=== PATIENT | female | born 1975 | race Caucasian/White ===

== ENCOUNTER 2019-03-20 10:49 | Inpatient (IN) | payer MEDICAID, OTHER ==
[~2019-03-20] VITALS: Ht 162.6 cm; Wt 58.1 kg
[2019-03-20] MEDS ORDERED: VISCOUS LIDOCAINE 2% 15 ML UDC MM ONE (12:00)
[2019-03-20] MEDS ORDERED: KETOROLAC 60MG/2ML VIAL IM ONE (12:00)
[2019-03-20 12:13] LABS: HEMATOCRIT. 30.9 % (36.0-48.0); MEAN CORPUSCULAR HEMOGLOBIN 20.5 pg (28.0-32.0); MEAN CORPUSCULAR VOLUME 70.3 fL (81.0-99.0); MEAN PLATELET VOLUME 10.9 fl (7.4-10.4); PLATELET 341 x1000/uL (130-400); RED CELL DISTRIBUTION WIDTH 19.1 % (11.6-14.6)
[2019-03-20 12:47] LABS: PLATELET ESTIMATE NORMAL
[2019-03-20] MEDS: HYDROCORTISONE ACETATE 25MG SUPP PR SCH ×3 (12:55→14:59)
[2019-03-20 14:32] LABS: CHLORIDE 110 mEq/L (98-107)
[2019-03-20] MEDS: SODIUM CHLORIDE 0.9% 500 ML IV NR ×2 (14:59→19:10)
[2019-03-20] MEDS ORDERED: IOHEXOL-300 100 ML BOTTLE ONE (15:27)
[2019-03-20] MEDS ORDERED: MORPHINE SULFATE 4 MG/ML CPJ (NOT FOR IM USE) IV SCH (15:45)
[2019-03-20] MEDS ORDERED: METRONIDAZOLE 500 MG PREMIX 100 ML IV ONE (16:15)
[2019-03-20] MEDS ORDERED: LEVOFLOXACIN 500MG PREMIX 100 ML IV ONE (16:15)
[2019-03-20] MEDS ORDERED: IPRATROPIUM/ALBUTEROL 0.5-3(2.5)MG/3ML NEB INH PRN (19:30)
[2019-03-20] MEDS ORDERED: LORAZEPAM 0.5MG TABLET PO PRN (19:30)
[2019-03-20] MEDS ORDERED: CLONIDINE 0.1MG TABLET PO PRN (19:30)
[2019-03-20] MEDS ORDERED: ACETAMINOPHEN 325MG TABLET PO PRN (19:30)
[2019-03-20 19:45] LABS: HCG SCREEN NEGATIVE
[2019-03-20] MEDS ORDERED: CEFTRIAXONE 1 G PREMIX 50 ML IV SCH (19:45)
[2019-03-20] MEDS: SODIUM CHLORIDE 0.9% 1,000 ML IV SCH (19:54)
[2019-03-20 20:04] LABS: LDL CHOLESTEROL 87 mg/dL (5-100)
[2019-03-20 20:06] LABS: HDL CHOLESTEROL 67 mg/dL (40-59)
[2019-03-20 20:12] LABS: *AMPHETAMINES SCREEN URINE NEGATIVE (NEGATIVE); *BARBITURATES SCREEN URINE NEGATIVE (NEGATIVE); *BENZODIAZEPINES SCREEN URINE NEGATIVE (NEGATIVE); *COCAINE SCREEN URINE NEGATIVE (NEGATIVE); CANNABINOID URINE SCREEN NEGATIVE (NEGATIVE)
[2019-03-20 20:13] LABS: METHADONE URINE SCREEN NEGATIVE (NEGATIVE); OPIATES URINE SCREEN NEGATIVE (NEGATIVE); PHENCYCLIDINE URINE SCREEN NEGATIVE (NEGATIVE)
[2019-03-20 20:25] LABS: PROTHROMBIN TIME 10.8 sec (9.6-11.0)
[2019-03-20 21:00] VITALS: BP 154/73
[2019-03-21] VITALS (10 sets, daily range): BP systolic 97–138; BP diastolic 40–65
[2019-03-21] MEDS: HYDROCODONE/ACETAMINOPHEN 5/325MG TABLET PO PRN ×3 (00:19→10:44)
[2019-03-21 07:02] LABS: HEMATOCRIT. 22.4 % (36.0-48.0); MEAN CORPUSCULAR HEMOGLOBIN 20.9 pg (28.0-32.0); MEAN CORPUSCULAR VOLUME 70.1 fL (81.0-99.0); MEAN PLATELET VOLUME 10.8 fl (7.4-10.4); PLATELET 253 x1000/uL (130-400); RED CELL DISTRIBUTION WIDTH 18.9 % (11.6-14.6)
[2019-03-21 07:49] LABS: CHLORIDE 112 mEq/L (98-107)
[2019-03-21 07:57] LABS: TOTAL IRON BINDING CAPACITY 356 ug/dL (250-450)
[2019-03-21 08:11] LABS: C REACTIVE PROTEIN QUANT 6.6 mg/L (0.0-3.0)
[2019-03-21 08:51] LABS: HEMOGLOBIN. 6.7 g/dL (12.0-16.0)
[2019-03-21] MEDS ORDERED: ACETAMINOPHEN 325MG TABLET PO ONE (10:00)
[2019-03-21] MEDS ORDERED: DIPHENHYDRAMINE 12.5MG/5ML UDC PO ONE (10:00)
[2019-03-21] MEDS: PANTOPRAZOLE 40MG DR TABLET PO SCH (10:43)
[2019-03-21 10:54] LABS: T4 FREE 2.59 ng/dL (0.76-1.46)
[2019-03-21 11:48] LABS: CLARITY URINE CLEAR (CLEAR); COLOR URINE YELLOW (YELLOW); KETONES URINE 1+ (NEGATIVE); LEUKOCYTE ESTERASE URINE NEGATIVE (NEGATIVE); NITRITE URINE NEGATIVE (NEGATIVE); OCCULT BLOOD URINE 2+ (NEGATIVE); PH URINE 5.5 (4.5-8.0); PROTEIN URINE NEGATIVE (NEGATIVE); SPECIFIC GRAVITY URINE 1.023 (1.005-1.030); UROBILINOGEN URINE 0.2 E.U./dL (0.2-1.0)
[2019-03-21] MEDS: METRONIDAZOLE 500 MG PREMIX 100 ML IV SCH ×2 (12:20→18:27)
[2019-03-21] MEDS: SUCRALFATE 1G TABLET PO SCH ×3 (12:20→21:08)
[2019-03-21] MEDS ORDERED: ACETAMINOPHEN 325MG TABLET PO NR (14:00)
[2019-03-21] MEDS: ONDANSETRON HCL 4MG/2ML INJ IV PRN (14:19)
[2019-03-21] MEDS ORDERED: MORPHINE SULFATE 2 MG/ML CPJ (NOT FOR IM USE) IV NR (14:45)
[2019-03-21] MEDS ORDERED: DIPHENHYDRAMINE 12.5MG/5ML UDC PO NR (15:00)
[2019-03-21] MEDS ORDERED: BISACODYL 10MG SUPP PR NR (15:00)
[2019-03-21] MEDS ORDERED: METOCLOPRAMIDE HCL 10MG/2ML VIAL IV NR ×2 (15:00→21:00)
[2019-03-21] MEDS ORDERED: SORBITOL 70% SOLN 30ML PO NR ×2 (16:00→21:00)
[2019-03-21] MEDS ORDERED: MAGNESIUM 2 G PREMIX 50 ML IV NR (17:00)
[2019-03-21 18:02] LABS: PLATELET ESTIMATE NORMAL
[2019-03-21] MEDS: CEFTRIAXONE 1 G PREMIX 50 ML IV SCH (18:10)
[2019-03-21] MEDS ORDERED: CEFTRIAXONE 1 G PREMIX 50 ML IV SCH (20:00)
[2019-03-22] VITALS: BP 102/51
[2019-03-22] MEDS ORDERED: SORBITOL 70% SOLN 30ML PO NR (03:00)
[2019-03-22] MEDS: METRONIDAZOLE 500 MG PREMIX 100 ML IV SCH ×3 (03:13→17:01)
[2019-03-22] MEDS: SODIUM CHLORIDE 0.9% 1,000 ML IV SCH (03:13)
[2019-03-22] MEDS: ONDANSETRON HCL 4MG/2ML INJ IV PRN (03:23)
[2019-03-22 04:00] VITALS: BP 140/60
[2019-03-22 07:00] LABS: HEMATOCRIT. 29.8 % (36.0-48.0); HEMOGLOBIN. 9.1 g/dL (12.0-16.0); MEAN CORPUSCULAR VOLUME 72.2 fL (81.0-99.0); MEAN PLATELET VOLUME 10.9 fl (7.4-10.4); PLATELET 273 x1000/uL (130-400); RED BLOOD CELL COUNT 4.13 mill/uL (4.2-5.4); RED CELL DISTRIBUTION WIDTH 19.5 % (11.6-14.6)
[2019-03-22 07:22] LABS: CHLORIDE 119 mEq/L (98-107)
[2019-03-22] MEDS: SUCRALFATE 1G TABLET PO SCH ×4 (07:40→19:48)
[2019-03-22] MEDS: PANTOPRAZOLE 40MG DR TABLET PO SCH (07:40)
[2019-03-22 08:00] VITALS: BP 125/55
[2019-03-22 12:00] VITALS: BP 135/66
[2019-03-22] MEDS: HYDROCORTISONE ACETATE 25MG SUPP PR SCH (12:00)
[2019-03-22] MEDS: IRON SUCROSE COMPLEX 100 MG/5 ML ML IV SCH ×2 (12:30→17:54)
[2019-03-22] MEDS ORDERED: PROPOFOL 200MG/20ML VIAL IV ONE ×3 (14:39→15:07)
[2019-03-22] MEDS ORDERED: LABETALOL 5MG/ML SYR 20 MG/4 ML SYRINGE IV PRN (15:15)
[2019-03-22] MEDS ORDERED: ONDANSETRON HCL 4MG/2ML INJ IV PRN (15:15)
[2019-03-22] MEDS ORDERED: MEPERIDINE HCL/PF 25MG/ML CPJ IV PRN (15:15)
[2019-03-22] MEDS ORDERED: HYDROMORPHONE HCL/PF 2MG/ML CPJ IV PRN (15:15)
[2019-03-22 16:00] VITALS: BP 139/72
[2019-03-22] MEDS: CEFTRIAXONE 1 G PREMIX 50 ML IV SCH (17:53)
[2019-03-22] MEDS: HYDROCODONE/ACETAMINOPHEN 5/325MG TABLET PO PRN (19:47)
[2019-03-22 20:00] VITALS: BP 126/61
[2019-03-23] VITALS: BP 130/65
[2019-03-23] MEDS: METRONIDAZOLE 500 MG PREMIX 100 ML IV SCH ×3 (01:39→19:20)
[2019-03-23] MEDS: SODIUM CHLORIDE 0.9% 1,000 ML IV SCH (01:41)
[2019-03-23 04:00] VITALS: BP 127/60
[2019-03-23 05:26] LABS: PLATELET ESTIMATE NORMAL
[2019-03-23 06:35] LABS: BASOPHILS % 0.5 % (0.0-2.0); EOSINOPHILS % 0.8 % (0.0-5.0); HEMATOCRIT. 25.8 % (36.0-48.0); HEMOGLOBIN. 8.1 g/dL (12.0-16.0); MEAN CORPUSCULAR HEMOGLOBIN 22.6 pg (28.0-32.0); MEAN CORPUSCULAR VOLUME 71.7 fL (81.0-99.0); MEAN PLATELET VOLUME 10.9 fl (7.4-10.4); MONOCYTES % 10.4 % (2.0-8.0); NEUTROPHILS % 58.3 % (40.0-76.0); PLATELET 210 x1000/uL (130-400); RED CELL DISTRIBUTION WIDTH 19.7 % (11.6-14.6)
[2019-03-23 06:41] LABS: CHLORIDE 113 mEq/L (98-107)
[2019-03-23 08:00] VITALS: BP 137/56
[2019-03-23] MEDS: PANTOPRAZOLE 40MG DR TABLET PO SCH (10:12)
[2019-03-23] MEDS: SUCRALFATE 1G TABLET PO SCH ×4 (10:12→21:00)
[2019-03-23 12:00] VITALS: BP 128/51
[2019-03-23] MEDS ORDERED: POTASSIUM CHLORIDE 20MEQ TABLET SR PO NR (12:00)
[2019-03-23] MEDS ORDERED: POTASSIUM CHLORIDE INJ 40 MEQ in DEXT 5% WATER 250 ML IV NR (13:00)
[2019-03-23] MEDS: HYDROCORTISONE ACETATE 25MG SUPP PR SCH (13:56)
[2019-03-23] MEDS: IRON SUCROSE COMPLEX 100 MG/5 ML ML IV SCH (13:56)
[2019-03-23 16:00] VITALS: BP 130/60
[2019-03-23 20:00] VITALS: BP 124/55
[2019-03-23] MEDS: CEFTRIAXONE 1 G PREMIX 50 ML IV SCH (20:00)
[2019-03-24] VITALS: BP 134/58
[2019-03-24] MEDS: METRONIDAZOLE 500 MG PREMIX 100 ML IV SCH (02:15)
[2019-03-24 04:00] VITALS: BP 111/53
[2019-03-24 05:38] LABS: HEMATOCRIT. 26.5 % (36.0-48.0); HEMOGLOBIN. 8.2 g/dL (12.0-16.0); MEAN CORPUSCULAR HEMOGLOBIN 22.4 pg (28.0-32.0); MEAN CORPUSCULAR VOLUME 71.7 fL (81.0-99.0); PLATELET 230 x1000/uL (130-400); RED BLOOD CELL COUNT 3.69 mill/uL (4.2-5.4); RED CELL DISTRIBUTION WIDTH 20.2 % (11.6-14.6)
[2019-03-24 05:42] LABS: CHLORIDE 113 mEq/L (98-107)
[2019-03-24] MEDS: PANTOPRAZOLE 40MG DR TABLET PO SCH (09:43)
[2019-03-24] MEDS: SUCRALFATE 1G TABLET PO SCH (09:43)
[2019-03-24 11:04] VITALS: BP 121/56
[2019-03-24 15:10] LABS: PLATELET ESTIMATE NORMAL
[2019-03-25 13:06] LABS: SACCHAROMYCES CEREVISIAE IGG <20.0 Units (0.0-24.9); SACCHAROMYCES CEREVISIAE IGM <20.0 Units (0.0-24.9)
[2019-03-26 15:11] LABS: ATYPICAL pANCA <1:20 titer (Neg:<1:20)
== END 2019-03-24 11:45 | disposition home or self-care (01) | DRG 254 ==
LOC: ER 10:49 → EDBEDREQ 16:21 → 6EST 16:51 → EDBD 16:51 → EDBEDREQ 17:01 → ENRESERV 19:59 → 7WST 23:56
PROVIDERS: ADMIT Internal Medicine; ATTEND Internal Medicine
PROC: 30233N1 Transfusion of Nonautologous Red Blood Cells into Peripheral Vein, Percutaneous Approach (ICD-10-PCS; 2019-03-21)
PROC: 0DB68ZX Excision of Stomach, Via Natural or Artificial Opening Endoscopic, Diagnostic (ICD-10-PCS; principal; 2019-03-22)
PROC: 0DJD8ZZ Inspection of Lower Intestinal Tract, Via Natural or Artificial Opening Endoscopic (ICD-10-PCS; 2019-03-22)
DX: K64.8 Other hemorrhoids (principal); K55.9 Vascular disorder of intestine, unspecified; E87.8 Other disorders of electrolyte and fluid balance, not elsewhere classified; D62 Acute posthemorrhagic anemia; K29.71 Gastritis, unspecified, with bleeding; K57.31 Diverticulosis of large intestine without perforation or abscess with bleeding; D50.9 Iron deficiency anemia, unspecified; E05.90 Thyrotoxicosis, unspecified without thyrotoxic crisis or storm; E87.6 Hypokalemia; R31.9 Hematuria, unspecified; I10 Essential (primary) hypertension; K80.20 Calculus of gallbladder without cholecystitis without obstruction; G43.909 Migraine, unspecified, not intractable, without status migrainosus; K44.9 Diaphragmatic hernia without obstruction or gangrene; K59.00 Constipation, unspecified; K64.4 Residual hemorrhoidal skin tags; Z98.891 History of uterine scar from previous surgery
CPT/HCPCS: 36415; 74018; 74177; 76536; 76700; 80048; 80061; 80305; 82728; 83036; 83540; 83550; 83735; 84145; 84439; 84443; 84481; 84703; 85651; 86140; 86256; 86671; 86850; 86900; 86920; 88305; 88312; 88313; 99285; J0696; J1885; J1956; J2270; J2405; J2704; J2765; J3475; J3480; J3490; J7040; J7060; P9016; Q0163; Q9967

== ENCOUNTER 2020-11-30 20:04 | Inpatient (IN) | payer MEDICAID ==
[~2020-11-30] VITALS: Ht 157.5 cm; Wt 50.9 kg
[2020-11-30 22:56] LABS: MEAN CORPUSCULAR HEMOGLOBIN 19.8 pg (28.0-32.0); MEAN CORPUSCULAR VOLUME 67.9 fL (81.0-99.0); MEAN PLATELET VOLUME 10.7 fl (7.4-10.4); PLATELET 254 x1000/uL (130-400); RED BLOOD CELL COUNT 3.04 mill/uL (4.2-5.4); RED CELL DISTRIBUTION WIDTH 17.7 % (11.6-14.6)
[2020-11-30 22:59] LABS: HEMATOCRIT. 20.6 % (36.0-48.0)
[2020-11-30 23:01] LABS: CHLORIDE 121 mEq/L (98-107)
[2020-11-30 23:11] LABS: PLATELET ESTIMATE NORMAL
[2020-11-30] MEDS ORDERED: POTASSIUM CHLORIDE 20MEQ TABLET SR PO ONE (23:15)
[2020-12-01] MEDS ORDERED: ACETAMINOPHEN 325MG TABLET PO ONE (03:30)
[2020-12-01 03:49] LABS: HEMATOCRIT. 27.3 % (36.0-48.0); HEMOGLOBIN. 8.1 g/dL (12.0-16.0); MEAN CORPUSCULAR HEMOGLOBIN 21.2 pg (28.0-32.0); MEAN CORPUSCULAR VOLUME 71.6 fL (81.0-99.0); MEAN PLATELET VOLUME 10.7 fl (7.4-10.4); PLATELET 264 x1000/uL (130-400); RED BLOOD CELL COUNT 3.81 mill/uL (4.2-5.4); RED CELL DISTRIBUTION WIDTH 20.7 % (11.6-14.6)
[2020-12-01 04:19] LABS: PLATELET ESTIMATE NORMAL
[2020-12-01] MEDS ORDERED: ONDANSETRON HCL 4MG/2ML INJ IV PRN (10:30)
[2020-12-01 11:00] VITALS: BP 140/70
[2020-12-01] MEDS: ACETAMINOPHEN 325MG TABLET PO PRN (11:46)
[2020-12-01 12:00] VITALS: BP_SYST 125; BP_SYST 67; BP_DIAS 125; BP_DIAS 67
[2020-12-01] MEDS ORDERED: TRAMADOL 50MG TABLET PO PRN (16:15)
[2020-12-01 16:30] VITALS: BP 122/73
[2020-12-01] MEDS: FERROUS SULFATE 325MG TABLET PO SCH (16:41)
[2020-12-01 20:00] VITALS: BP 121/70
[2020-12-02] VITALS: BP 133/62
[2020-12-02] MEDS: ACETAMINOPHEN 325MG TABLET PO PRN ×2 (00:52→10:33)
[2020-12-02 04:00] VITALS: BP 114/59
[2020-12-02] MEDS: FERROUS SULFATE 325MG TABLET PO SCH ×2 (07:14→15:49)
[2020-12-02 08:13] LABS: HEMATOCRIT. 26.7 % (36.0-48.0); HEMOGLOBIN. 7.9 g/dL (12.0-16.0); MEAN CORPUSCULAR HEMOGLOBIN 20.9 pg (28.0-32.0); MEAN CORPUSCULAR VOLUME 70.4 fL (81.0-99.0); MEAN PLATELET VOLUME 11.4 fl (7.4-10.4); PLATELET 266 x1000/uL (130-400); RED CELL DISTRIBUTION WIDTH 20.2 % (11.6-14.6)
[2020-12-02 08:16] LABS: CHLORIDE 111 mEq/L (98-107)
[2020-12-02 08:25] LABS: TOTAL IRON BINDING CAPACITY 414 ug/dL (250-450)
[2020-12-02 08:41] LABS: FOLIC ACID (FOLATE) SERUM 18.5 ng/mL (>5.38)
[2020-12-02] MEDS ORDERED: DOCUSATE SODIUM 250MG CAPSULE PO SCH (09:00)
[2020-12-02 12:00] VITALS: BP 117/67
[2020-12-02 16:00] VITALS: BP 133/64
[2020-12-02 16:35] VITALS: BP 125/75
[2020-12-02 22:59] LABS: PLATELET ESTIMATE NORMAL
== END 2020-12-02 17:05 | disposition home or self-care (01) | DRG 663 ==
LOC: ER 20:04 → 4WST 12-01 01:42 → ENRESERV 12-01 07:54
PROVIDERS: ADMIT Internal Medicine; ATTEND Internal Medicine
PROC: 30233N1 Transfusion of Nonautologous Red Blood Cells into Peripheral Vein, Percutaneous Approach (ICD-10-PCS; principal; 2020-12-01)
DX: D50.9 Iron deficiency anemia, unspecified (principal); E87.0 Hyperosmolality and hypernatremia; E87.8 Other disorders of electrolyte and fluid balance, not elsewhere classified; E87.6 Hypokalemia; E44.0 Moderate protein-calorie malnutrition; E87.1 Hypo-osmolality and hyponatremia; K57.30 Diverticulosis of large intestine without perforation or abscess without bleeding; Z98.891 History of uterine scar from previous surgery; Z68.20 Body mass index [BMI] 20.0-20.9, adult
CPT/HCPCS: 36415; 76830; 76856; 80048; 80053; 82607; 82728; 82746; 83540; 83550; 85025; 86850; 86900; 86920; 93005; 99285; J2405; P9016

== ENCOUNTER 2022-02-21 23:11 | Emergency (ER) | payer MEDICAID, OTHER ==
[~2022-02-21] VITALS: Ht 154.9 cm; Wt 51.0 kg
[2022-02-22 00:58] LABS: BASOPHILS % 0.7 % (0.0-2.0); EOSINOPHILS % 0.3 % (0.0-5.0); HEMATOCRIT. 23.4 % (36.0-48.0); HEMOGLOBIN. 7.1 g/dL (12.0-16.0); LYMPHOCYTES % 42.7 % (20.0-50.0); MEAN CORPUSCULAR HEMOGLOBIN 21.8 pg (28.0-32.0); MEAN CORPUSCULAR VOLUME 72.3 fL (81.0-99.0); MEAN PLATELET VOLUME 10.9 fl (7.4-10.4); MONOCYTES % 11.4 % (2.0-8.0); NEUTROPHILS % 44.9 % (40.0-76.0); PLATELET 254 x1000/uL (130-400); RED BLOOD CELL COUNT 3.24 mill/uL (4.2-5.4); RED CELL DISTRIBUTION WIDTH 17.3 % (11.6-14.6)
[2022-02-22 01:05] LABS: CHLORIDE 112 mEq/L (98-107)
[2022-02-22 01:51] VITALS: BP 126/89
== END 2022-02-22 01:54 | disposition home or self-care (01) ==
LOC: ER 23:11
DX: D64.9 Anemia, unspecified (principal); R53.1 Weakness; G89.29 Other chronic pain; Z98.890 Other specified postprocedural states
CPT/HCPCS: 36415; 80053; 85025; 99283

== ENCOUNTER 2022-09-17 12:18 | Emergency (ER) | payer OTHER ==
[~2022-09-17] VITALS: Ht 154.9 cm; Wt 52.0 kg
[2022-09-17 12:49] VITALS: BP 152/50
== END 2022-09-17 15:50 | disposition home or self-care (01) ==
LOC: ER 12:18
DX: I10 Essential (primary) hypertension (principal); D64.9 Anemia, unspecified; Z98.890 Other specified postprocedural states
CPT/HCPCS: 81025; 99282